=== PATIENT | female | born 1960 | race African-American/Black ===

== ENCOUNTER 2019-08-18 13:30 | Outpatient (CLI) | payer MEDICARE, MEDICAID ==
[2019-08-18 15:37] VITALS: BP 148/98
== END 2019-08-18 15:30 | disposition home or self-care (01) ==
LOC: PAN 13:30
DX: R10.9 Unspecified abdominal pain (principal); R14.0 Abdominal distension (gaseous)
CPT/HCPCS: 99203

== ENCOUNTER 2019-08-18 14:43 | Inpatient (IN) | payer MEDICARE, OTHER ==
[~2019-08-18] VITALS: Ht 170.2 cm; Wt 76.2 kg
[2019-08-18 14:55] VITALS: BP 173/87
--- NOTE | 2019-08-18 14:59 | Emergency Room Report ---
History of Present Illness General Chief Complaint: Abdominal Pain Source: Patient Present Illness HPI Is a 58-year-old female presents after increased epigastric pain and vomiting. Patient reports having multiple episodes of increased gas-like pain. She reports having increased muscle spasming. She reports having moderate headache. She denies any bloody stools and states she had a normal bowel movement this morning. Patient had prior history of hypertension she reports taking Vicodin this morning without any improvement. She had prior history of some kind of neck surgery which she cannot state what kind of surgery this was.Pain is worse with movement. She reports having difficulty with ambulation. Allergies: Coded Allergies: PENICILLINS (Verified Allergy, Unknown, 08/18/19) Patient History Last Menstrual Period: menopause Reviewed Nursing Documentation: PMH: Agreed; PSxH: Agreed Nursing Documentation-PMH Past Medical History: No Stated History Review of Systems All Other Systems: negative except mentioned in HPI Physical Exam Vital Signs Date Time Temp Pulse Resp B/P (MAP) Pulse Ox O2 Delivery O2 Flow Rate FiO2 08/18/19 14:50 99.0 96 16 151/84 (106) 98 Room Air General Appearance: no apparent distress, alert, GCS 15, Chronically Ill Neck: limited range of motion Respiratory: lungs clear, normal breath sounds Cardiovascular #1: normal peripheral pulses, regular rate, rhythm, no edema Gastrointestinal: normal inspection, non tender, soft Musculoskeletal: decreased range of motion - neck decreased ROM Neurologic: normal inspection, alert, responsive Psychiatric: normal inspection Skin: no rash Medical Decision Making Diagnostic Impression: Primary Impression: Abdominal pain Additional Impression: Gastritis ER Course Patient presented for abdominal pain. Patient was noted to have some neck pain as well. Differential diagnoses included ischemic bowel, appendicitis, perforated viscus, abdominal aortic aneurysm, inferior myocardial infarction, viral gastroenteritis among others.Because patient's complexity imaging studies , and laboratory testing ordered. Laboratory testing showed: Electrolytes were unremarkable Lipase was normal White blood count was slightly low. CT abdomen pelvis showed nonspecific changes see radiology report for full details. CT of cervical spine was ordered due to patient's restriction of range of motion of her neck . CT cervical spine showed postsurgical changes Patient was given pain medications for abdominal pain with some improvement. Dr. Joey Mireles was contacted for inpatient management due to persistent pain. Last Vital Signs Date Time Temp Pulse Resp B/P (MAP) Pulse Ox O2 Delivery O2 Flow Rate FiO2 08/18/19 14:50 99.0 96 16 151/84 (366) 15 Room Air Status: unchanged Disposition: ADMITTED INPATIENT Condition: Stable Scripts Pantoprazole* (PROTONIX*) 40 Mg Tablet.dr 40 MG ORAL DAILY for 30 Days, TAB Prov: Slade Murphy MD 08/21/19 Sucralfate* (CARAFATE*) 1 Gm Tablet 1 GM ORAL FOUR TIMES A DAY for 30 Days, TAB Prov: Slade Murphy MD 08/21/19 Jenaro Kelly MD Aug 18, 2019 14:59
[2019-08-18] MEDS ORDERED: LORazepam Inj 2mg/ml 1ml IV ONE (15:00)
[2019-08-18] MEDS ORDERED: DiphenhydrAMINE 50mg/ml Inj IVP ONE (15:00)
[2019-08-18] MEDS ORDERED: Omnipaque-300 100ml vial INJ PRN (15:00)
--- NOTE | 2019-08-18 15:23 | NUR ---
ED Nurse Note: pt walked in to ER from home due to sharp abdominal pain 09/09 which started today. pt aao x4 and ambulatory but weak due to severe abdominal pain at this moment. cooperative but moaning for pain. skin clean and intact. pt is in gown and on reliability technologist.
--- NOTE | 2019-08-18 15:33 | NUR ---
ED Nurse Note: pt unable to void as stating "I am too dehydrated." ERMD made aware. per ERMD, pt is ok to drink. a cup of water provided.
[2019-08-18 15:43] LABS: ANION GAP 12 mmol/L (5-15); BLOOD UREA NITROGEN 11 mg/dL (7-18); CALCIUM 9.7 MG/DL (8.5-10.1); CARBON DIOXIDE 26 MMOL/L (21-32); CHLORIDE 105 MMOL/L (98-107); CREATININE 1.3 MG/DL (0.55-1.30); POTASSIUM 3.1 MMOL/L (3.5-5.1); SODIUM 142 MMOL/L (136-145)
[2019-08-18 15:49] LABS: ALANINE AMINOTRANSFERASE 20 U/L (12-78); ALBUMIN 4.3 G/DL (3.4-5.0); ALBUMIN/GLOBULIN RATIO 1.1 (1.0-2.7); ALKALINE PHOSPHATASE 121 U/L (46-116); ASPARTATE AMINO TRANSFERASE 16 U/L (15-37); BILIRUBIN,TOTAL 0.4 MG/DL (0.2-1.0)
--- NOTE | 2019-08-18 16:10 | NUR ---
ED Nurse Note: pt went down for CT scan in stable condition.
[2019-08-18 16:11] LABS: BASOPHILS % (AUTO) 1.5 % (0.0-2.0); EOSINOPHILS % (AUTO) 0.4 % (0.0-3.0); HEMOGLOBIN 12.4 G/DL (12.0-16.0); MEAN CORPUSCULAR VOLUME 94 FL (80-99); MONOCYTES % (AUTO) 6.9 % (1.0-10.0); NEUTROPHILS % (AUTO) 51.2 % (45.0-75.0); PLATELET COUNT 268 K/UL (150-450); RED BLOOD COUNT 3.83 M/UL (4.20-5.40); RED CELL DISTRIBUTION WIDTH 11.7 % (11.6-14.8); WHITE BLOOD COUNT 4.7 K/UL (4.8-10.8)
--- NOTE | 2019-08-18 16:34 | NUR ---
ED Nurse Note: pt came back from imaging in stable condition.
--- NOTE | 2019-08-18 17:00 | Diagnostic Imaging Report ---
Indication: Neck pain Technique: CT cervical spine was performed utilizing automated exposure control without intravenous contrast material. Axial, sagittal and coronal images were generated. CT dose: Total DLP 339.17 mGycm; CTDI vol 15.88 mGy Comparison: None Findings: No acute cervical spine fractures identified. There is reversal of the cervical lordosis. There is no evidence of spondylolisthesis. There are multilevel discogenic degenerative changes of the cervical spine most pronounced at C6-C7 where there is complete deficiency of the disc and complete bony ankylosis at this level. There is multilevel mild facet and uncovertebral joint hypertrophy as well. There is no focus of severe bony central canal stenosis or high-grade bony foraminal narrowing. Please note that the central cord, disks and nerve roots are better evaluated on MRI, which can be obtained for more sensitive evaluation as clinically indicated. There is no prevertebral soft tissue fluid collection or hematoma. Imaged portions of the thyroid are normal in appearance. Imaged lung apices are clear. IMPRESSION: No evidence of acute cervical spine fracture. Degenerative changes of the cervical spine with reversal of the cervical lordosis with kyphosis related to severe degenerative changes at C6-C7 where there is near complete loss of the disc and near complete bony ankylosis of the adjacent vertebral bodies at this level. No focus of high-grade bony central canal stenosis or high-grade bony foraminal narrowing. The CT scanner at [facility] is accredited by the [employer] and the scans are performed using protocols designed to limit radiation exposure to as low as reasonably achievable to attain images of sufficient resolution adequate for diagnostic evaluation.
--- NOTE | 2019-08-18 17:07 | Diagnostic Imaging Report ---
Indication: Abdominal pain with vomiting Technique: CT of the abdomen and pelvis utilizing automated exposure control with intravenous contrast. Venous scanning performed. Axial, sagittal and coronal reformats presented. CT dose: Total DLP 742.99 mGycm; CTDI vol 15.47 mGy Comparison: None Findings: Image lower chest unremarkable. Hepatic contour is smooth. No focal hepatic mass lesion appreciated on this single phase exam. Portal veins appear patent. Gallbladder is without CT evident gallstones or pericholecystic inflammatory changes. No biliary ductal dilatation. Punctate calcifications noted in the spleen, possibly related to prior granulomatous exposure. Spleen is otherwise unremarkable. Adrenal glands and pancreas unremarkable. There is no peripancreatic inflammatory changes or fluid collections. Kidneys enhance symmetrically. There is no urinary tract stone or hydronephrosis. No perinephric stranding or perinephric fluid collections. Bladder is unremarkable in appearance. Patient is status post hysterectomy. There is no free intraperitoneal air or fluid. Apparent thickening of portions of the wall of the stomach likely related to underdistention. There is no evidence of small bowel obstruction. A few scattered colonic diverticula are noted without evidence of acute diverticulitis. Appendix is not definitively identified however there are no focal inflammatory changes in the right lower quadrant suggest acute appendicitis. Abdominal aorta is normal in caliber with overall mild atherosclerotic calcification. No pathologically enlarged lymphadenopathy is identified. No subcutaneous fluid collection. Scoliosis. No acute osseous abnormality. IMPRESSION: * Apparent thickening of portions of the wall of the stomach may possibly be related to underdistention versus gastritis. Consider follow-up endoscopy. * No evidence of small bowel obstruction. No free intraperitoneal air or fluid. * Few scattered colonic diverticula without evidence of acute diverticulitis. * Appendix not definitively identified. No secondary signs to suggest acute appendicitis. * Mild scoliosis and degenerative changes of the spine. No acute osseous normality. * Status post hysterectomy. The CT scanner at [facility] is accredited by the [employer] and the scans are performed using protocols designed to limit radiation exposure to as low as reasonably achievable to attain images of sufficient resolution adequate for diagnostic evaluation.
[2019-08-18 17:25] VITALS: BP 162/93
--- NOTE | 2019-08-18 17:30 | NUR ---
NURSE NOTES: received report from ER,ANDRAE Lozano. patient will be admitted to [facility] under . dx of ADB pain.
--- NOTE | 2019-08-18 17:30 | NUR ---
ED Nurse Note: report given to ANDRAE Ta
[2019-08-18 17:45] LABS: APPEARANCE,URINE CLEAR; BILIRUBIN, URINE NEGATIVE (NEGATIVE); COLOR,URINE PALE YELLOW; GLUCOSE, URINE (UA) NEGATIVE (NEGATIVE); KETONES,URINE NEGATIVE (NEGATIVE); LEUKOCYTE ESTERASE ,URINE 1+ (NEGATIVE); NITRITE,URINE NEGATIVE (NEGATIVE); PH,URINE 6.5 (4.5-8.0); PROTEIN,URINE NEGATIVE (NEGATIVE); UROBILINOGEN,URINE NORMAL MG/DL (0.0-1.0)
--- NOTE | 2019-08-18 17:48 | NUR ---
ED Nurse Note: pt left unit with 1 histology technologist in stable condition.
--- NOTE | 2019-08-18 17:55 | NUR ---
NURSE NOTES: patient admitted to Room 416-2 under dx of ADB pain. alert. oriented. verbally responsive. no medical history except hysterectomy. no respiratory distress noted on room air. pain on upper abd and back 10/10. patient got Ativan IVP and benadryl IVP for pain, Zofran for N/V. IV on LAC 20 intact. skin intact. no skin issues. left message to Dr. marina for admission orders.
--- NOTE | 2019-08-18 18:15 | Consultation ---
DATE OF CONSULTATION: 08/18/2019 CONSULTING PHYSICIAN: Gómez Jj M.D. CHIEF COMPLAINT: Total body pain. HISTORY OF PRESENT ILLNESS: This is a very pleasant 58-year-old female, difficult to get history from her. She is constant crying. She had history of gas all over her body from the toe all the way to the head. She has difficulty breathing, chest pain, shortness of breath, abdominal pain, constipation, dysphagia, severe epigastric pain so on and so forth. The patient is again crying significantly even touching her, she has pain. PAST MEDICAL HISTORY: 1. Hypertension. 2. Depression. PAST SURGICAL HISTORY: Hemorrhoidectomy. CURRENT MEDICATIONS: See medication reconciliation list. FAMILY HISTORY: No family history of GI malignancies. SOCIAL HISTORY: The patient denies any tobacco, alcohol, or drug abuse. ALLERGIES: Penicillin. REVIEW OF SYSTEMS: Abdominal pain. Constipation. Bloating. Total body. Gas all over the body from swelling. Again she is positive headaches, positive abdominal pain, positive chest pain, positive shortness of breath. PHYSICAL EXAMINATION: VITAL SIGNS: Temperature 99, blood pressure is 140/94, pulse is 99, respirations 20. HEENT: Normocephalic and atraumatic. Sclerae anicteric. NECK: Supple. No evidence of obvious lymphadenopathy. CARDIOVASCULAR: Tachy. Regular rate. Plus S1 and S2. LUNGS: Decreased breath sounds bilaterally. ABDOMEN: Positive bowel sounds. Soft. Again tender to palpation, but does not know how much reliable her exam is. EXTREMITIES: No cyanosis. No clubbing. No edema. ASSESSMENT AND PLAN: This is a 58-year-old female with total body pain, crying, complains of numerous complaints including chest pain, shortness of breath. I think the patient needs to be admitted to the emergency room for full workup. We need to get her labs, get an EKG to make sure she does not have any cardiopulmonary disease at this time. The patient also at the age of 58 needs a screening colonoscopy. Chronic epigastric pain also qualifies her for endoscopy. We will admit her first to the emergency room in the hospital, do workup, and then we will consider doing all those when she is stable. Gómez Radha Jj DR: ROMERO JOB#: [id number] CC:
[2019-08-18] MEDS ORDERED: Miralax 17gm pkt ORAL PRN (18:30)
[2019-08-18] MEDS ORDERED: Nitroglycerin Subl 0.4mg tab SL PRN (18:30)
[2019-08-18] MEDS ORDERED: Metoclopramide 10mg/2ml Inj IVP PRN (18:30)
[2019-08-18] MEDS: D5 1/2NS 1,000 ML IV SCH (18:49)
[2019-08-18] MEDS: Morphine Sulfate 2mg/ml Inj(IV/IM USE ONLY) IVP PRN ×2 (18:50→23:58)
--- NOTE | 2019-08-18 19:31 | NUR ---
HAND-OFF: Report given to ANDRAE Jimenes.
[2019-08-18 20:00] VITALS: BP 151/89
--- NOTE | 2019-08-18 20:22 | NUR ---
NURSE NOTES: RECEIVED PT FROM ANDRAE MOONEY. PT IS AWAKE, AAOX4, ON ROOM AIR, NO ACUTE DISTRESS NOTED. IV ON LEFT AC IS INTACT AND PATENT. PATIENT DENIES PAIN AT THE MOMENT. BED IS LOCKED AT THE LOWEST POSITION, BED ALARMS ACTIVE, SIDE RAILS UP X2 AND CALL LIGHT IS WITHIN REACH. WILL CONTINUE TO MONITOR.
[2019-08-18] MEDS: Heparin 5000 units/ml inj SUBQ SCH (20:55)
[2019-08-19] VITALS: BP 102/69
[2019-08-19] MEDS: LORazepam Inj 2mg/ml 1ml IV PRN ×2 (02:33→09:56)
[2019-08-19 04:00] VITALS: BP 128/76
[2019-08-19] MEDS: Morphine Sulfate 2mg/ml Inj(IV/IM USE ONLY) IVP PRN ×3 (04:28→13:17)
[2019-08-19 05:55] LABS: BASOPHILS % (AUTO) 2.1 % (0.0-2.0); EOSINOPHILS % (AUTO) 1.8 % (0.0-3.0); HEMATOCRIT 34.1 % (37.0-47.0); HEMOGLOBIN 11.2 G/DL (12.0-16.0); LYMPHOCYTES % (AUTO) 53.4 % (20.0-45.0); MEAN CORPUSCULAR VOLUME 96 FL (80-99); NEUTROPHILS % (AUTO) 35.7 % (45.0-75.0); PLATELET COUNT 264 K/UL (150-450); RED BLOOD COUNT 3.57 M/UL (4.20-5.40); RED CELL DISTRIBUTION WIDTH 12.8 % (11.6-14.8); WHITE BLOOD COUNT 4.4 K/UL (4.8-10.8)
[2019-08-19 06:36] LABS: ALANINE AMINOTRANSFERASE 17 U/L (12-78); ALBUMIN 3.5 G/DL (3.4-5.0); ALKALINE PHOSPHATASE 103 U/L (46-116); AMYLASE 76 U/L (25-115); ANION GAP 6 mmol/L (5-15); ASPARTATE AMINO TRANSFERASE 13 U/L (15-37); BILIRUBIN,TOTAL 0.4 MG/DL (0.2-1.0); BLOOD UREA NITROGEN 8 mg/dL (7-18); CARBON DIOXIDE 28 MMOL/L (21-32); CHLORIDE 109 MMOL/L (98-107); CREATININE 1.2 MG/DL (0.55-1.30); POTASSIUM 3.4 MMOL/L (3.5-5.1); SODIUM 143 MMOL/L (136-145)
--- NOTE | 2019-08-19 07:24 | NUR ---
HAND-OFF: Report given to ANDRAE GUZMAN.
--- NOTE | 2019-08-19 07:26 | NUR ---
NURSE NOTES: Patient is awake and alert,IV fluids infusing as ordered.Patient is NPO for procedure schedule today.Call light maritza moore.
[2019-08-19 08:00] VITALS: BP 132/85
[2019-08-19] MEDS: Pantoprazole Inj IV SCH (08:43)
[2019-08-19] MEDS: Heparin 5000 units/ml inj SUBQ SCH ×2 (08:46→20:20)
--- NOTE | 2019-08-19 09:39 | Diagnostic Imaging Report ---
Indication: 58-year-old female with abdominal pain Technique: Grayscale and duplex Doppler imaging of the abdomen performed. Comparison: None Findings: The liver appears homogeneous. There is a slight contour deformity along the lateral segment of the left lobe not felt to be significant. Doppler interrogation of the main portal vein shows patency with hepatopedal, monophasic flow. There is no biliary ductal dilatation identified. CBD is between 5 and 6 mm which is normal for this age. There is no intrahepatic biliary ductal dilatation. As is typically seen, CBD is slightly larger near the kole hepatis. Gallbladder is unremarkable. There demonstrated part of the pancreas, aorta and IVC show no definite abnormalities. Both kidneys appear unremarkable. There is no hydronephrosis. IMPRESSION: No acute findings identified.
[2019-08-19] MEDS: D5 1/2NS 1,000 ML IV SCH ×2 (10:00→10:52)
[2019-08-19 12:00] VITALS: BP 163/77
--- NOTE | 2019-08-19 12:31 | Consultation ---
History of Present Illness General Date patient seen: Aug 19, 2019 Chief Complaint: Abdominal Pain Present Illness Allergies: Coded Allergies: PENICILLINS (Verified Allergy, Unknown, 08/18/19) Medication History No Active Prescriptions or Reported Meds Patient History Healthcare decision maker Resuscitation status Advanced Directive on File Physical Exam Last 24 Hour Vital Signs Date Time Temp Pulse Resp B/P (MAP) Pulse Ox O2 Delivery O2 Flow Rate FiO2 08/19/19 08:00 98.5 83 19 132/85 (101) 100 08/19/19 08:00 98.5 83 19 132/85 (101) 100 08/19/19 04:00 98.0 77 18 128/76 (93) 99 08/19/19 00:00 98.6 74 18 102/69 (80) 99 08/18/19 21:00 Room Air 08/18/19 20:00 99.0 76 18 151/89 (109) 95 08/18/19 18:09 Room Air 08/18/19 17:48 98.7 79 22 162/93 100 Room Air 08/18/19 17:25 98.7 79 22 162/93 100 Room Air 08/18/19 15:34 76 18 Room Air 08/18/19 14:55 79 16 173/87 100 Room Air 08/18/19 14:50 99.0 96 16 151/84 (106) 98 Room Air Intake and Output 08/18/19 08/19/19 19:00 07:00 Intake Total 500 ml 900 ml Balance 500 ml 900 ml Intake Oral 0 ml IV Total 500 ml 900 ml Laboratory Tests Test 08/18/19 15:20 08/18/19 16:00 08/18/19 17:00 08/19/19 05:40 Sodium Level 142 MMOL/L (136-145) 143 MMOL/L (136-145) Potassium Level 3.1 MMOL/L (3.5-5.1) L 3.4 MMOL/L (3.5-5.1) L Chloride Level 105 MMOL/L (98-107) 109 MMOL/L (98-107) H Carbon Dioxide Level 26 MMOL/L (21-32) 28 MMOL/L (21-32) Anion Gap 12 mmol/L (5-15) 6 mmol/L (5-15) Blood Urea Nitrogen 11 mg/dL (7-18) 8 mg/dL (7-18) Creatinine 1.3 MG/DL (0.55-1.30) 1.2 MG/DL (0.55-1.30) Estimat Glomerular Filtration Rate 51.1 mL/min (>60) 56.1 mL/min (>60) Glucose Level 98 MG/DL (74-106) 103 MG/DL (74-106) Calcium Level 9.7 MG/DL (8.5-10.1) 9.0 MG/DL (8.5-10.1) Total Bilirubin 0.4 MG/DL (0.2-1.0) 0.4 MG/DL (0.2-1.0) Aspartate Amino Transf (AST/SGOT) 16 U/L (15-37) 13 U/L (15-37) L Alanine Aminotransferase (ALT/SGPT) 20 U/L (12-78) 17 U/L (12-78) Alkaline Phosphatase 121 U/L (46-116) H 103 U/L (46-116) Total Protein 8.2 G/DL (6.4-8.2) 7.0 G/DL (6.4-8.2) Albumin 4.3 G/DL (3.4-5.0) 3.5 G/DL (3.4-5.0) Globulin 3.9 g/dL 3.5 g/dL Albumin/Globulin Ratio 1.1 (1.0-2.7) 1.0 (1.0-2.7) Lipase 167 U/L (73-393) 240 U/L (73-393) White Blood Count 4.7 K/UL (4.8-10.8) L 4.4 K/UL (4.8-10.8) L Red Blood Count 3.83 M/UL (4.20-5.40) L 3.57 M/UL (4.20-5.40) L Hemoglobin 12.4 G/DL (12.0-16.0) 11.2 G/DL (12.0-16.0) L Hematocrit 36.0 % (37.0-47.0) L 34.1 % (37.0-47.0) L Mean Corpuscular Volume 94 FL (80-99) 96 FL (80-99) Mean Corpuscular Hemoglobin 32.3 PG (27.0-31.0) H 31.4 PG (27.0-31.0) H Mean Corpuscular Hemoglobin Concent 34.3 G/DL (32.0-36.0) 32.8 G/DL (32.0-36.0) Red Cell Distribution Width 11.7 % (11.6-14.8) 12.8 % (11.6-14.8) Platelet Count 268 K/UL (150-450) 264 K/UL (150-450) Mean Platelet Volume 6.9 FL (6.5-10.1) 6.7 FL (6.5-10.1) Neutrophils (%) (Auto) 51.2 % (45.0-75.0) 35.7 % (45.0-75.0) L Lymphocytes (%) (Auto) 40.0 % (20.0-45.0) 53.4 % (20.0-45.0) H Monocytes (%) (Auto) 6.9 % (1.0-10.0) 7.0 % (1.0-10.0) Eosinophils (%) (Auto) 0.4 % (0.0-3.0) 1.8 % (0.0-3.0) Basophils (%) (Auto) 1.5 % (0.0-2.0) 2.1 % (0.0-2.0) H Prothrombin Time 10.6 SEC (9.30-11.50) Prothromb Time International Ratio 1.0 (0.9-1.1) Activated Partial Thromboplast Time 24 SEC (23-33) 27 SEC (23-33) Urine Color Pale yellow Urine Appearance Clear Urine pH 6.5 (4.5-8.0) Urine Specific [place] 1.010 (1.005-1.035) Urine Protein Negative (NEGATIVE) Urine Glucose (UA) Negative (NEGATIVE) Urine Ketones Negative (NEGATIVE) Urine Blood Negative (NEGATIVE) Urine Nitrite Negative (NEGATIVE) Urine Bilirubin Negative (NEGATIVE) Urine Urobilinogen Normal MG/DL (0.0-1.0) Urine Leukocyte Esterase 1+ (NEGATIVE) H Urine RBC 0-2 /HPF (0 - 2) Urine WBC 2-4 /HPF (0 - 2) Urine Squamous Epithelial Cells Few /LPF (NONE/OCC) Urine Bacteria Few /HPF (NONE) Amylase Level 76 U/L (25-115) Height (Feet): 5 Height (Inches): 7.00 Weight (Pounds): 168 Medications Current Medications Medications (Trade) Dose Ordered Sig/Coleen Route PRN Reason Start Time Stop Time Status Last Admin Dose Admin Acetaminophen (Tylenol) 650 mg Q4H PRN ORAL fever 08/18/19 18:30 09/17/19 18:29 Dextrose (Dextrose 50%) 25 ml Q30M PRN IV Hypoglycemia 08/18/19 18:30 09/17/19 18:29 Dextrose (Dextrose 50%) 50 ml Q30M PRN IV Hypoglycemia 08/18/19 18:30 09/17/19 18:29 Dextrose/Sodium Chloride 1,000 ml @ 75 mls/hr [id number] IV 08/18/19 18:26 09/17/19 18:25 08/19/19 10:52 Diphenhydramine HCl (Benadryl) 25 mg Q6H PRN ORAL Itching/Pruritis 08/18/19 18:30 09/17/19 18:29 Heparin Sodium (Porcine) (Heparin 5000 units/ml) 5,000 units EVERY 12 HOURS SUBQ 08/18/19 21:00 09/17/19 20:59 08/19/19 08:46 Iohexol (OMNIPAQUE-300 100ml) 100 ml NOW PRN INJ Radiology Procedure 08/18/19 15:00 08/20/19 15:00 Lorazepam (Ativan 2mg/ml 1ml) 1 mg Q4H PRN IV agitation 08/18/19 18:30 08/25/19 18:29 08/19/19 09:56 Metoclopramide HCl (Reglan) 10 mg Q6H PRN IVP severe nausea 08/18/19 18:30 09/17/19 18:29 Morphine Sulfate (Morphine Sulfate) 2 mg Q4H PRN IVP severe Pain (Pain Scale 7-10) 08/18/19 18:30 08/25/19 18:29 08/19/19 08:43 Nitroglycerin (Ntg) 0.4 mg Q5M X 3 DOSES PRN SL Prn Chest Pain 08/18/19 18:30 09/17/19 18:29 Ondansetron HCl (Zofran) 4 mg Q6H PRN IVP Nausea & Vomiting 08/18/19 18:30 09/17/19 18:29 Pantoprazole (Protonix) 40 mg DAILY IV 08/19/19 09:00 09/18/19 08:59 08/19/19 08:43 Polyethylene Glycol (Miralax) 17 gm HSPRN PRN ORAL Constipation 08/18/19 18:30 09/17/19 18:29 Temazepam (Restoril) 15 mg HSPRN PRN ORAL Insomnia 08/18/19 18:30 08/25/19 18:29 Slade Murphy MD Aug 19, 2019 12:31
--- NOTE | 2019-08-19 14:32 | GI Progress Note ---
Assessment/Plan Problems: (1) Abdominal pain ICD Codes: R10.9 - Unspecified abdominal pain SNOMED: [id number] Status: unchanged Status Narrative Discussed with Dr. Jj. Assessment/Plan EGD/colonoscopy scheduled for tomorrow. - CLD, NPO @ [place]. - hold all blood thinners tonight prn transfusions ppi will follow with additional recommendations post procedure. The patient was seen and examined at bedside and all new and available data was reviewed in the patients chart. I agree with the above findings, impression and plan. (Patient seen earlier today. Signature stamp does not reflect patient encounter time.). - Gómez Jj MD Subjective Gastrointestinal/Abdominal: Reports: abdominal pain Objective Last 24 Hour Vital Signs Date Time Temp Pulse Resp B/P (MAP) Pulse Ox O2 Delivery O2 Flow Rate FiO2 08/19/19 12:00 98.6 74 18 163/77 (105) 99 08/19/19 09:00 Room Air 08/19/19 08:00 98.5 83 19 132/85 (101) 100 08/19/19 08:00 98.5 83 19 132/85 (101) 100 08/19/19 04:00 98.0 77 18 128/76 (93) 99 08/19/19 00:00 98.6 74 18 102/69 (80) 99 08/18/19 21:00 Room Air 08/18/19 20:00 99.0 76 18 151/89 (109) 95 08/18/19 18:09 Room Air 08/18/19 17:48 98.7 79 22 162/93 100 Room Air 08/18/19 17:25 98.7 79 22 162/93 100 Room Air 08/18/19 15:34 76 18 Room Air 08/18/19 14:55 79 16 173/87 100 Room Air 08/18/19 14:50 99.0 96 16 151/84 (106) 98 Room Air Intake and Output 08/18/19 08/19/19 19:00 07:00 Intake Total 500 ml 900 ml Balance 500 ml 900 ml Intake Oral 0 ml IV Total 500 ml 900 ml Laboratory Tests Test 08/18/19 15:20 08/18/19 16:00 08/18/19 17:00 08/19/19 05:40 Sodium Level 142 MMOL/L (136-145) 143 MMOL/L (136-145) Potassium Level 3.1 MMOL/L (3.5-5.1) L 3.4 MMOL/L (3.5-5.1) L Chloride Level 105 MMOL/L (98-107) 109 MMOL/L (98-107) H Carbon Dioxide Level 26 MMOL/L (21-32) 28 MMOL/L (21-32) Anion Gap 12 mmol/L (5-15) 6 mmol/L (5-15) Blood Urea Nitrogen 11 mg/dL (7-18) 8 mg/dL (7-18) Creatinine 1.3 MG/DL (0.55-1.30) 1.2 MG/DL (0.55-1.30) Estimat Glomerular Filtration Rate 51.1 mL/min (>60) 56.1 mL/min (>60) Glucose Level 98 MG/DL (74-106) 103 MG/DL (74-106) Calcium Level 9.7 MG/DL (8.5-10.1) 9.0 MG/DL (8.5-10.1) Total Bilirubin 0.4 MG/DL (0.2-1.0) 0.4 MG/DL (0.2-1.0) Aspartate Amino Transf (AST/SGOT) 16 U/L (15-37) 13 U/L (15-37) L Alanine Aminotransferase (ALT/SGPT) 20 U/L (12-78) 17 U/L (12-78) Alkaline Phosphatase 121 U/L (46-116) H 103 U/L (46-116) Total Protein 8.2 G/DL (6.4-8.2) 7.0 G/DL (6.4-8.2) Albumin 4.3 G/DL (3.4-5.0) 3.5 G/DL (3.4-5.0) Globulin 3.9 g/dL 3.5 g/dL Albumin/Globulin Ratio 1.1 (1.0-2.7) 1.0 (1.0-2.7) Lipase 167 U/L (73-393) 240 U/L (73-393) White Blood Count 4.7 K/UL (4.8-10.8) L 4.4 K/UL (4.8-10.8) L Red Blood Count 3.83 M/UL (4.20-5.40) L 3.57 M/UL (4.20-5.40) L Hemoglobin 12.4 G/DL (12.0-16.0) 11.2 G/DL (12.0-16.0) L Hematocrit 36.0 % (37.0-47.0) L 34.1 % (37.0-47.0) L Mean Corpuscular Volume 94 FL (80-99) 96 FL (80-99) Mean Corpuscular Hemoglobin 32.3 PG (27.0-31.0) H 31.4 PG (27.0-31.0) H Mean Corpuscular Hemoglobin Concent 34.3 G/DL (32.0-36.0) 32.8 G/DL (32.0-36.0) Red Cell Distribution Width 11.7 % (11.6-14.8) 12.8 % (11.6-14.8) Platelet Count 268 K/UL (150-450) 264 K/UL (150-450) Mean Platelet Volume 6.9 FL (6.5-10.1) 6.7 FL (6.5-10.1) Neutrophils (%) (Auto) 51.2 % (45.0-75.0) 35.7 % (45.0-75.0) L Lymphocytes (%) (Auto) 40.0 % (20.0-45.0) 53.4 % (20.0-45.0) H Monocytes (%) (Auto) 6.9 % (1.0-10.0) 7.0 % (1.0-10.0) Eosinophils (%) (Auto) 0.4 % (0.0-3.0) 1.8 % (0.0-3.0) Basophils (%) (Auto) 1.5 % (0.0-2.0) 2.1 % (0.0-2.0) H Prothrombin Time 10.6 SEC (9.30-11.50) Prothromb Time International Ratio 1.0 (0.9-1.1) Activated Partial Thromboplast Time 24 SEC (23-33) 27 SEC (23-33) Urine Color Pale yellow Urine Appearance Clear Urine pH 6.5 (4.5-8.0) Urine Specific [place] 1.010 (1.005-1.035) Urine Protein Negative (NEGATIVE) Urine Glucose (UA) Negative (NEGATIVE) Urine Ketones Negative (NEGATIVE) Urine Blood Negative (NEGATIVE) Urine Nitrite Negative (NEGATIVE) Urine Bilirubin Negative (NEGATIVE) Urine Urobilinogen Normal MG/DL (0.0-1.0) Urine Leukocyte Esterase 1+ (NEGATIVE) H Urine RBC 0-2 /HPF (0 - 2) Urine WBC 2-4 /HPF (0 - 2) Urine Squamous Epithelial Cells Few /LPF (NONE/OCC) Urine Bacteria Few /HPF (NONE) Amylase Level 76 U/L (25-115) Height (Feet): 5 Height (Inches): 7.00 Weight (Pounds): 168 General Appearance: WD/WN, no apparent distress, alert Cardiovascular: normal rate Respiratory/Chest: normal breath sounds, no respiratory distress Abdominal Exam: normal bowel sounds, non tender, soft Extremities: normal range of motion, non-tender Evan Bravo NP Aug 19, 2019 14:32
--- NOTE | 2019-08-19 15:07 | NUR ---
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 98.9 HR 96 RR 16 B/P 101/84 WBC 4.7 K 3.1 ALK PHOS 121 ABD US= NEGATIVE CT SPINE= NO FRACTURE NOTES CT ABD/PEL= NEGATIVE IS: IV BOLUS NS X 500ML K-DUR PO ADMITTED TO MED/SURG MED/SURG STATUS GI CONSULT DCP RETURN HOME
[2019-08-19 16:00] VITALS: BP 135/82
[2019-08-19] MEDS ORDERED: Bisacodyl EC 5mg tab ORAL SCH (16:00)
[2019-08-19] MEDS ORDERED: Nulytely 4L ORAL SCH (16:00)
--- NOTE | 2019-08-19 17:50 | History & Physical ---
History and Physical History & Physicial Dictated for Int Med-DR Mireles no. [id number]. Tim Jiang MD Aug 19, 2019 17:50
[2019-08-19] MEDS: Morphine Sulfate 4mg/ml Inj (IV USE ONLY) IVP PRN ×2 (18:06→22:20)
[2019-08-19] MEDS ORDERED: Morphine Sulfate 2mg/ml Inj(IV/IM USE ONLY) IVP PRN (18:30)
--- NOTE | 2019-08-19 18:30 | NUR ---
NURSE NOTES: patient was started on bowel prep as ordered for schedule EGD and Colonoscopy. Prior to starting prep,patient medicated for pain with some relief.Call light within reach,Bedside commode in room.
--- NOTE | 2019-08-19 19:30 | NUR ---
HAND-OFF: Report given to Jessica ABEBE.
--- NOTE | 2019-08-19 19:45 | History and Physical Report ---
DATE OF ADMISSION: 08/18/2019 CHIEF COMPLAINT: The patient is a 58-year-old female, who presents with a chief complaint of "stomach pain, nausea, and vomiting." HISTORY OF PRESENT ILLNESS: Began approximately two months ago. The patient began to experience epigastric pain. The patient states the pain is increased over the last three days. The patient has developed nausea and vomiting. The patient states she is unable to tolerate liquids or solids. The patient presented to [facility]. The patient is admitted for epigastric pain to rule out peptic ulcer disease. REVIEW OF SYSTEMS: CONSTITUTIONAL: The patient denies weight loss or weight gain. The patient denies fevers or chills. HEENT: The patient denies ear or throat pain. The patient denies headache. CARDIOVASCULAR: The patient denies palpitations or chest pain. CHEST: The patient denies wheeze or shortness of breath. ABDOMEN: The patient complains of epigastric pain as above. The patient complains of nausea with vomiting as above. The patient denies diarrhea or constipation. GENITOURINARY: The patient denies dysuria or increased frequency of urination. NEUROMUSCULAR: The patient denies seizures or generalized pain. PAST MEDICAL HISTORY: The patient denies. PAST SURGICAL HISTORY: Significant for hemorrhoidectomy. CURRENT MEDICATIONS: The patient denies. ALLERGIES: Penicillin. SOCIAL HISTORY: The patient is and is disabled. The patient denies tobacco or alcohol use. PHYSICAL EXAMINATION: VITAL SIGNS: Temperature 98.6, respirations 18, pulse 74, blood pressure 102/69. GENERAL: The patient is well-developed and well-nourished female, who is currently crying. HEENT: Eyes, pupils are equal and responsive to light and accommodation. Extraocular movements are intact. NECK: Supple without lymphadenopathy. CHEST: Lungs are clear to auscultation bilaterally without wheezes or rales. CARDIOVASCULAR: Regular rhythm and rate. S1, S2 are normal without murmurs, rubs, or gallops. ABDOMEN: Soft, tender to palpation in the epigastric region, nondistended with positive bowel sounds. No evidence of hepatosplenomegaly. Currently, no rebound or guarding noted. EXTREMITIES: Negative for clubbing, cyanosis, or edema. RECTAL/GENITAL: Not performed. NEUROLOGIC: Cranial nerves II through XII are grossly intact without focal deficits. Motor strength is 5/5 bilaterally. Deep tendon reflexes are 2+ plantar. IMAGING: A CT scan of the abdomen and pelvis revealed thickening of portions of the wall of the stomach consistent with gastritis. LABORATORY STUDIES: WBC 4.7, hemoglobin 12.4, hematocrit 36.0, platelets 260,000. Sodium 142, potassium 3.1, chloride 105, CO2 26, BUN 11, creatinine 1.3, glucose 98. Amylase 76, lipase 167. ASSESSMENT: This is a 58-year-old female. 1. Epigastric pain. 2. Nausea and vomiting. TREATMENT: Epigastric pain/nausea/vomiting. A Gastroenterology consultation has been obtained with Dr. Gómez Jj. The patient is scheduled for endoscopy on . The patient has been started empirically on intravenous Protonix. The patient is also receiving morphine for pain control. We will follow recommendation of Gastroenterology. Tim Jiang M.D. DR: CARLOTA JOB#: [id number] CC:
--- NOTE | 2019-08-19 19:45 | NUR ---
NURSE NOTES: Received patient in bed, awake, alert, oriented x4, able to make her needs known, no acute distress noted, VSS, afebrile. IV site is clean dry and intact. Call light is within reach, bed is in low position, locked, alarm is on. Will continue to monitor for safety and comfort.
[2019-08-19] MEDS: 1/2NS w/KCl 20mEq 1000ml 1,000 ML IV SCH (19:51)
[2019-08-19 20:00] VITALS: BP 143/89
[2019-08-19] MEDS ORDERED: Fleet's Enema 133ml RECTAL SCH (23:00)
[2019-08-20] VITALS (18 sets, daily range): BP systolic 114–167; BP diastolic 62–94
[2019-08-20] MEDS: Morphine Sulfate 4mg/ml Inj (IV USE ONLY) IVP PRN ×5 (02:47→21:21)
[2019-08-20 05:47] LABS: HEMATOCRIT 31.9 % (37.0-47.0); HEMOGLOBIN 10.6 G/DL (12.0-16.0); MEAN CORPUSCULAR VOLUME 95 FL (80-99); PLATELET COUNT 263 K/UL (150-450); RED BLOOD COUNT 3.37 M/UL (4.20-5.40); RED CELL DISTRIBUTION WIDTH 12.3 % (11.6-14.8); WHITE BLOOD COUNT 4.5 K/UL (4.8-10.8)
[2019-08-20 06:03] LABS: ANION GAP 10 mmol/L (5-15); BLOOD UREA NITROGEN 6 mg/dL (7-18); CALCIUM 8.9 MG/DL (8.5-10.1); CARBON DIOXIDE 25 MMOL/L (21-32); CHLORIDE 108 MMOL/L (98-107); POTASSIUM 3.5 MMOL/L (3.5-5.1); SODIUM 143 MMOL/L (136-145)
--- NOTE | 2019-08-20 07:31 | NUR ---
HAND-OFF: Report given to Clementina ABEBE.
--- NOTE | 2019-08-20 07:59 | NUR ---
NURSE NOTES: received pt in bed, no complaint of pain or discomfort. Patient is NPO for procedure, patient is aware and sign at the room door. LAC gauge 20 saline locked. Bed locked at the lowest position possible, call light within easy reach, siderails upx2. Will continue to monitor pt and follow up with the plan of care.
[2019-08-20] MEDS: Pantoprazole Inj IV SCH (08:59)
[2019-08-20] MEDS: Heparin 5000 units/ml inj SUBQ SCH ×2 (08:59→21:00)
[2019-08-20] MEDS: 1/2NS w/KCl 20mEq 1000ml 1,000 ML IV SCH ×2 (09:15→21:21)
[2019-08-20] MEDS ORDERED: fentaNYL 100 mcg/2 mL IV ONE ×2 (12:08→12:23)
[2019-08-20] MEDS ORDERED: Midazolam 2mg/2ml Inj ONE ×2 (12:10→12:23)
--- NOTE | 2019-08-20 12:14 | Pre-Procedure Note/Attestation ---
Pre-Procedure Note/Attestation Complete Prior to Procedure Planned Procedure: not applicable Procedure Narrative: esophagogastroduodenoscopy and colonoscopy Indications for Procedure Pre-Operative Diagnosis: anemia, abd pain Attestation I attest that I discussed the nature of the procedure; its benefits; risks and complications; and alternatives (and the risks and benefits of such alternatives ), prior to the procedure, with the patient (or the patient's legal ambulatory services representative). I attest that, if there was a reasonable possibility of needing a blood transfusion, the patient (or the patient's legal ambulatory services representative) was given the [facility] standardized written summary, pursuant to the Jasbir Lilliana Blood Safety Act ([place] Health and Safety Code # 1645, as amended). I attest that I re-evaluated the patient just prior to the surgery and that there has been no change in the patient's H&P, except as documented below: Gómez Jj MD Aug 20, 2019 12:14
--- NOTE | 2019-08-20 12:15 | Moderate Sedation - Procedural ---
Moderate Sedation HPI Home Medication No Active Prescriptions or Reported Meds Patient History Allergies: Coded Allergies: PENICILLINS (Verified Allergy, Unknown, 08/18/19) Pre-Procedural Mod Sedation Date: Aug 20, 2019 Pre-Assessment Time: 12:14 Airway Assessment (Malampati): II Heart: normal Lungs: normal Abdomen: normal Extremities: normal Evaluation Hx of untoward rxns to mod sed: Yes Procedures/Plans: EGD, Colonoscopy Plan for Moderate Sedation: Midazolam, Fentanyl ASA Score: II Informed Consent The nature of the procedure/sedation; its benefits; risks and complications; and alternatives (and the risks and benefits of such alternatives) were discussed with the patient (or their legal franchise sales representative), prior to the procedure. All questions were answered to the patient's (or their legal franchise sales representative's) satisfaction and the patient (or their legal franchise sales representative) gave informed consent to the procedure. I attest that I re-evaluated the patient just prior to the surgery and that there has been no change in the patient's H&P, except as documented below: Gómez Jj MD Aug 20, 2019 12:15
--- NOTE | 2019-08-20 12:28 | Endoscopy Procedure Note ---
Endoscopy Procedure Note General Indication for Procedure: anemia, abd pain Procedures Performed: EGD, colonoscopy Operative Findings/Diagnosis: gastritis, hemorrhoids Specimen: yes Pt Tolerated Procedure Well: Yes Estimated Blood Loss: none Anesthesia Anesthesiologist: none Anesthesia: moderate sedation Inserted Devices Implant(s) used?: No GI Core Measures 50 yrs or older w/o bx or poly: Not Applicable 10yrs. F/U recommended: Not Applicable Gómez Jj MD Aug 20, 2019 12:28
--- NOTE | 2019-08-20 14:49 | NUR ---
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 97.1 HR 69 RR 20 B/P 125/60 RA 98% IS: IVF NS @ 75ML/HR PROTONIX IV HEPARIN SUBC MED/SURG STATUS
--- NOTE | 2019-08-20 15:42 | Pulmonology Progress Note ---
Assessment/Plan Problems: (1) Abdominal pain (2) Gastritis Assessment/Plan tolerated endoscopy very well tolerating diet d/w GI symptomatic treatment Subjective ROS Limited/Unobtainable: No Constitutional: Reports: no symptoms HEENT: Repors: no symptoms Respiratory: Reports: no symptoms Allergies: Coded Allergies: PENICILLINS (Verified Allergy, Unknown, 08/18/19) Objective Last 24 Hour Vital Signs Date Time Temp Pulse Resp B/P (MAP) Pulse Ox O2 Delivery O2 Flow Rate FiO2 08/20/19 13:25 97.1 69 20 125/63 99 Room Air 08/20/19 13:10 67 21 114/63 98 Room Air 08/20/19 13:00 66 19 124/62 100 Nasal Cannula 3 08/20/19 12:55 63 20 119/67 100 Nasal Cannula 3 08/20/19 12:50 97.6 65 18 123/67 100 Nasal Cannula 3 08/20/19 12:05 98.1 08/20/19 09:00 Room Air 08/20/19 08:00 98.1 65 18 132/80 (97) 08/20/19 04:00 98.1 75 18 148/80 (102) 08/20/19 00:00 98.2 76 20 131/94 (106) 08/19/19 21:17 Room Air 08/19/19 20:00 98.8 75 18 143/89 (107) 08/19/19 16:00 98.4 79 17 135/82 (99) 97 Intake and Output 08/19/19 08/20/19 19:00 07:00 Intake Total 775 ml 600 ml Balance 775 ml 600 ml IV Total 525 ml 600 ml Other 250 ml # Voids 4 # Bowel Movements 4 General Appearance: WD/WN, no acute distress HEENT: anicteric Respiratory/Chest: chest wall non-tender, lungs clear Breasts: no masses Cardiovascular: normal rate Abdomen: normal bowel sounds, soft, non tender Genitourinary: normal external genitalia Extremities: no cyanosis 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 Lymphatic: no neck adenopathy Musculoskeletal: normal muscle bulk Laboratory Tests 08/20/19 05:23: White Blood Count 4.5L, Red Blood Count 3.37L, Hemoglobin 10.6L, Hematocrit 31.9L, Mean Corpuscular Volume 95, Mean Corpuscular Hemoglobin 31.5H, Mean Corpuscular Hemoglobin Concent 33.2, Red Cell Distribution Width 12.3, Platelet Count 263, Mean Platelet Volume 6.5, Neutrophils (%) (Auto) , Lymphocytes (%) ( Auto) , Monocytes (%) (Auto) , Eosinophils (%) (Auto) , Basophils (%) (Auto) , Prothrombin Time 10.7, Prothromb Time International Ratio 1.0, Activated Partial Thromboplast Time 25, Sodium Level 143, Potassium Level 3.5, Chloride Level 108H, Carbon Dioxide Level 25, Anion Gap 10, Blood Urea Nitrogen 6L, Creatinine 1.0, Estimat Glomerular Filtration Rate > 60, Glucose Level 87, Calcium Level 8.9 Current Medications Medications (Trade) Dose Ordered Sig/Coleen Route PRN Reason Start Time Stop Time Status Last Admin Dose Admin Acetaminophen (Tylenol) 650 mg Q4H PRN ORAL fever 08/18/19 18:30 09/17/19 18:29 Dextrose (Dextrose 50%) 25 ml Q30M PRN IV Hypoglycemia 08/18/19 18:30 09/17/19 18:29 Dextrose (Dextrose 50%) 50 ml Q30M PRN IV Hypoglycemia 08/18/19 18:30 09/17/19 18:29 Diphenhydramine HCl (Benadryl) 25 mg Q6H PRN ORAL Itching/Pruritis 08/18/19 18:30 09/17/19 18:29 Heparin Sodium (Porcine) (Heparin 5000 units/ml) 5,000 units EVERY 12 HOURS SUBQ 08/18/19 21:00 09/17/19 20:59 08/19/19 08:46 Lorazepam (Ativan 2mg/ml 1ml) 1 mg Q4H PRN IV agitation 08/18/19 18:30 08/25/19 18:29 08/19/19 09:56 Metoclopramide HCl (Reglan) 10 mg Q6H PRN IVP severe nausea 08/18/19 18:30 09/17/19 18:29 Morphine Sulfate (Morphine Sulfate) 2 mg Q4H PRN IVP Moderate Pain (Pain Scale 4-6) 08/19/19 18:30 08/25/19 18:29 Morphine Sulfate (Morphine Sulfate) 4 mg Q4H PRN IVP Severe Pain (Pain Scale 7-10) 08/19/19 17:45 08/26/19 17:44 08/20/19 11:35 Nitroglycerin (Ntg) 0.4 mg Q5M X 3 DOSES PRN SL Prn Chest Pain 08/18/19 18:30 09/17/19 18:29 Ondansetron HCl (Zofran) 4 mg Q6H PRN IVP Nausea & Vomiting 08/18/19 18:30 09/17/19 18:29 Pantoprazole (Protonix) 40 mg DAILY IV 08/19/19 09:00 09/18/19 08:59 08/20/19 08:59 Polyethylene Glycol (Miralax) 17 gm HSPRN PRN ORAL Constipation 08/18/19 18:30 09/17/19 18:29 Sodium 1,000 ml @ 75 mls/hr [id number] IV 08/19/19 19:00 09/18/19 18:59 08/20/19 09:15 Temazepam (Restoril) 15 mg HSPRN PRN ORAL Insomnia 08/18/19 18:30 08/25/19 18:29 Slade Murphy MD Aug 20, 2019 15:42
--- NOTE | 2019-08-20 16:45 | Procedure Note ---
DATE OF PROCEDURE: 08/20/2019 SURGEON: Gómez Jj M.D. REFERRING PHYSICIAN: Joey Mireles M.D. PROCEDURE: Upper endoscopy with biopsy and colonoscopy. ANESTHESIA: A 6 mg of Versed and 100 mcg of fentanyl IV. INDICATION: Anemia, abdominal pain. REASON FOR PROCEDURE: The procedure, risks, benefits, and possible consequences, including hemorrhage, aspiration, perforation and infection, and alternative treatments, were explained to the patient/legal guardian by Dr. Gómez Jj and the patient/legal guardian understood and accepted these risks. PROCEDURE IN DETAIL: After informed consent was obtained and the patient was adequately sedated, Olympus upper endoscope was advanced from the mouth into the second portion of the duodenum and retroflexion was performed in the stomach. The patient has few erosions in the antrum without any obvious ulceration or bleeding. Biopsy from antrum was obtained to rule out H. pylori infection. At this time, the upper endoscope was retrieved and the patient was turned over for colonoscopy. First, rectal exam was performed, which was positive for internal hemorrhoids. Then, the scope was advanced from rectum into the cecum documented by appendiceal orifice, ileocecal valve, and right upper quadrant palpation. Quality of prep was good. The patient has some scattered diverticulosis in the left colon. Retroflexion of rectum showed evidence of internal hemorrhoids. Otherwise, the rest of the examination was within normal limits. No obvious findings in this endoscopy and colonoscopy, for the patient complain of abdominal pain and anemia. RECOMMENDATIONS: 1. Follow up biopsy results and treat accordingly. 2. The patient to be started on diet and advance as tolerated. 3. GI standpoint, the patient can be discharged and follow as an outpatient for further workup of her abdominal pain. I want to thank, Dr. Joey Mireles for this kind referral. Gómez Jj M.D. DR: SHEREEN JOB#: [id number] CC: Joey Mireles M.D.; Fax#: [phone]
[2019-08-20] MEDS ORDERED: LORazepam Inj 2mg/ml 1ml IV SCH (18:45)
--- NOTE | 2019-08-20 19:39 | Internal Med Progress Note ---
Subjective Physician Name Joey Mireles Attending Physician Joey Mireles MD Current Medications Medications (Trade) Dose Ordered Sig/Coleen Route PRN Reason Start Time Stop Time Status Last Admin Dose Admin Acetaminophen (Tylenol) 650 mg Q4H PRN ORAL fever 08/18/19 18:30 09/17/19 18:29 Dextrose (Dextrose 50%) 25 ml Q30M PRN IV Hypoglycemia 08/18/19 18:30 09/17/19 18:29 Dextrose (Dextrose 50%) 50 ml Q30M PRN IV Hypoglycemia 08/18/19 18:30 09/17/19 18:29 Diphenhydramine HCl (Benadryl) 25 mg Q6H PRN ORAL Itching/Pruritis 08/18/19 18:30 09/17/19 18:29 Heparin Sodium (Porcine) (Heparin 5000 units/ml) 5,000 units EVERY 12 HOURS SUBQ 08/18/19 21:00 09/17/19 20:59 08/19/19 08:46 Lorazepam (Ativan 2mg/ml 1ml) 0.5 mg ONCE IV 08/20/19 18:45 08/20/19 20:00 08/20/19 18:51 Lorazepam (Ativan 2mg/ml 1ml) 1 mg Q4H PRN IV agitation 08/18/19 18:30 08/25/19 18:29 08/19/19 09:56 Metoclopramide HCl (Reglan) 10 mg Q6H PRN IVP severe nausea 08/18/19 18:30 09/17/19 18:29 Morphine Sulfate (Morphine Sulfate) 2 mg Q4H PRN IVP Moderate Pain (Pain Scale 4-6) 08/19/19 18:30 08/25/19 18:29 Morphine Sulfate (Morphine Sulfate) 4 mg Q4H PRN IVP Severe Pain (Pain Scale 7-10) 08/19/19 17:45 08/26/19 17:44 08/20/19 17:11 Nitroglycerin (Ntg) 0.4 mg Q5M X 3 DOSES PRN SL Prn Chest Pain 08/18/19 18:30 09/17/19 18:29 Ondansetron HCl (Zofran) 4 mg Q6H PRN IVP Nausea & Vomiting 08/18/19 18:30 09/17/19 18:29 Pantoprazole (Protonix) 40 mg DAILY IV 08/19/19 09:00 09/18/19 08:59 08/20/19 08:59 Polyethylene Glycol (Miralax) 17 gm HSPRN PRN ORAL Constipation 08/18/19 18:30 09/17/19 18:29 Sodium 1,000 ml @ 75 mls/hr [id number] IV 08/19/19 19:00 09/18/19 18:59 08/20/19 09:15 Temazepam (Restoril) 15 mg HSPRN PRN ORAL Insomnia 08/18/19 18:30 08/25/19 18:29 Allergies: Coded Allergies: PENICILLINS (Verified Allergy, Unknown, 08/18/19) Subjective Awake, alert, responsive, complains of abdominal pain, no nausea vomiting. Objective Last Vital Signs Date Time Temp Pulse Resp B/P (MAP) Pulse Ox O2 Delivery O2 Flow Rate FiO2 08/20/19 17:41 98.4 08/20/19 16:00 79 19 167/73 (104) 100 08/20/19 13:25 Room Air 08/20/19 13:00 3 Laboratory Tests Test 08/20/19 05:23 White Blood Count 4.5 K/UL (4.8-10.8) L Red Blood Count 3.37 M/UL (4.20-5.40) L Hemoglobin 10.6 G/DL (12.0-16.0) L Hematocrit 31.9 % (37.0-47.0) L Mean Corpuscular Volume 95 FL (80-99) Mean Corpuscular Hemoglobin 31.5 PG (27.0-31.0) H Mean Corpuscular Hemoglobin Concent 33.2 G/DL (32.0-36.0) Red Cell Distribution Width 12.3 % (11.6-14.8) Platelet Count 263 K/UL (150-450) Mean Platelet Volume 6.5 FL (6.5-10.1) Neutrophils (%) (Auto) % (45.0-75.0) Lymphocytes (%) (Auto) % (20.0-45.0) Monocytes (%) (Auto) % (1.0-10.0) Eosinophils (%) (Auto) % (0.0-3.0) Basophils (%) (Auto) % (0.0-2.0) Prothrombin Time 10.7 SEC (9.30-11.50) Prothromb Time International Ratio 1.0 (0.9-1.1) Activated Partial Thromboplast Time 25 SEC (23-33) Sodium Level 143 MMOL/L (136-145) Potassium Level 3.5 MMOL/L (3.5-5.1) Chloride Level 108 MMOL/L (98-107) H Carbon Dioxide Level 25 MMOL/L (21-32) Anion Gap 10 mmol/L (5-15) Blood Urea Nitrogen 6 mg/dL (7-18) L Creatinine 1.0 MG/DL (0.55-1.30) Estimat Glomerular Filtration Rate > 60 mL/min (>60) Glucose Level 87 MG/DL (74-106) Calcium Level 8.9 MG/DL (8.5-10.1) Intake and Output 08/19/19 08/20/19 19:00 07:00 Intake Total 775 ml 600 ml Balance 775 ml 600 ml IV Total 525 ml 600 ml Other 250 ml # Voids 4 # Bowel Movements 4 Objective General: No acute distress, awake and alert HEENT: NCAT, sclera anicteric, PERRL, EOMI. Neck: Supple, no significant jugular venous distention, Lungs: fair inspiratory effort, clear to auscultation bilaterally, no Wheeze or Rales. Heart: Regular rate and rhythm, normal S1/S2, no murmur Abdomen: soft, Generalized tenderness, nondistended. Normoactive bowel sounds. / Rectal: Refused and deferred. Extremities: No Cyanosis , clubbing or edema. Neuro: A&O x 3, Able to move all extremities Skin: warm, no rashes or lesions Psych: anxious mood and affect Assessment/Plan Assessment/Plan ASSESSMENT: This is a 58-year-old female. 1. Epigastric pain. 2. Nausea and vomiting. TREATMENT: Epigastric pain/nausea/vomiting. A Gastroenterology consultation has been obtained with Dr. Gómez Jj. will advance diet as tolerated. Pain control DC planning home in AM EGD / Colonoscopy (08/20/2019) Operative Findings/Diagnosis: gastritis, hemorrhoids Joey Mireles MD Aug 20, 2019 19:39
--- NOTE | 2019-08-20 20:20 | NUR ---
HAND-OFF: Report given to ANDRAE Martinez.
--- NOTE | 2019-08-20 20:36 | NUR ---
NURSE NOTES: RECEIVED PT FROM ANDRAE RICARDO. PT IS AWAKE, AAO X4, ON ROOM AIR, C/O 8/10 PAIN IN THE LOWER ABDOMEN. IV ON RIGHT FA 22 G IS INTACT AND PATENT. BED IS LOCKED AND LOW, BED ALARMS ACTIVE, SIDE RAILS UP X2 AND CALL LIGHT IS WITHIN REACH. WILL CONTINUE TO MONITOR AND FOLLOW UP WITH PAIN MANAGEMENT.
[2019-08-21] VITALS: BP 120/68
[2019-08-21] MEDS: Morphine Sulfate 4mg/ml Inj (IV USE ONLY) IVP PRN ×3 (02:48→11:05)
[2019-08-21 04:00] VITALS: BP 137/71
[2019-08-21 06:28] LABS: BASOPHILS % (AUTO) 0.7 % (0.0-2.0); EOSINOPHILS % (AUTO) 0.9 % (0.0-3.0); HEMATOCRIT 33.3 % (37.0-47.0); HEMOGLOBIN 11.1 G/DL (12.0-16.0); LYMPHOCYTES % (AUTO) 18.1 % (20.0-45.0); MEAN CORPUSCULAR VOLUME 95 FL (80-99); NEUTROPHILS % (AUTO) 75.3 % (45.0-75.0); PLATELET COUNT 274 K/UL (150-450); RED BLOOD COUNT 3.51 M/UL (4.20-5.40); RED CELL DISTRIBUTION WIDTH 12.4 % (11.6-14.8); WHITE BLOOD COUNT 8.4 K/UL (4.8-10.8)
[2019-08-21 06:46] LABS: ANION GAP 9 mmol/L (5-15); BLOOD UREA NITROGEN 9 mg/dL (7-18); CALCIUM 8.9 MG/DL (8.5-10.1); CARBON DIOXIDE 25 MMOL/L (21-32); CHLORIDE 107 MMOL/L (98-107); POTASSIUM 3.6 MMOL/L (3.5-5.1); SODIUM 141 MMOL/L (136-145)
[2019-08-21 07:17] LABS: % IRON SATURATION 10 % (15-50); IRON 29 ug/dL (50-175); TOTAL IRON BINDING CAPACITY 295 ug/dL (250-450)
--- NOTE | 2019-08-21 07:20 | NUR ---
NURSE NOTES: HANDOFF RECEIVED FROM HUMBERTO, RN. PATIENT RECEIVED ALERT AND AWAKE IN BED. PATIENT HAS 2 IV SITES, BOTH ARE CLEAN DRY AND INTACT. ONE SALINE LOCKED THE OTHER RUNNING PRESCRIBED FLUIDS AT 75ML/HR. PATIENT IS ABLE TO MAKE NEEDS KNOWN. BED IS IN THE LOW AND LOCKED POSITION AND CALL LIGHT WITHIN REACH. WILL CONTINUE TO MONITOR.
--- NOTE | 2019-08-21 07:39 | NUR ---
HAND-OFF: Report given to ANDRAE RAO.
[2019-08-21 08:00] VITALS: BP 130/74
[2019-08-21] MEDS ORDERED: CARAFATE1 G1 ORAL (09:13)
[2019-08-21] MEDS ORDERED: PROTONIX40 MG ORAL (09:13)
[2019-08-21] MEDS: Pantoprazole Inj IV SCH (09:43)
[2019-08-21] MEDS: Heparin 5000 units/ml inj SUBQ SCH (09:44)
[2019-08-21] MEDS: 1/2NS w/KCl 20mEq 1000ml 1,000 ML IV SCH (11:00)
[2019-08-21 12:00] VITALS: BP 138/84
--- NOTE | 2019-08-21 12:05 | NUR ---
NURSE NOTES: DOCTOR PLACED ORDER FOR DISCHARGE. PATIENT SEEMED APPREHENSIVE FOR DISCHARGE BECAUSE SHE WAS STILL COMPLAINING OF STOMACH PAIN. PATIENT ASKED FOR DISCHARGE PAPERWORK AND TO REMOVE IV ACCESS DEVICES. I WAS DOING THE DISCHARGE PAPERWORK AND ASKED PATIENT IF I COULD CONTACT A FAMILY MEMBER OR FRIEND TO LET THEM KNOW OF HER DISCHARGE. PATIENT STATED THAT A FRIEND WOULD BE PICKING HER UP BUT DID NOT WANT ME TO CONTACT THEM STATING " I JUST WANT TO LEAVE, I DON'T WANT TO GET MAD AT ANYONE" PATIENT WAS UNCLEAR IF A FRIEND WOULD BE PICKING THEM UP OR IF SHE WOULD BE FINDING HER OWN WAY HOME. ALTHOUGH PREVIOUSLY MENTIONED A FRIEND WOULD BE HERE TO GET HER. OFFERED PATIENT A TAXI VOUCHER BUT SHE DECLINE. WALKED WITH PATIENT TO THE FIRST FLOOR WHERE PATIENT LEFT OUT OF THE FIRE DOOR EXIT. PATIENT LEFT STABLE AND ALERT, ID BRACELET AND IV ACCESS DEVICES REMOVED, NO SWELLING OR SIGNS OF HEMATOMA NOTED. DISCHARGE PAPERWORK SIGNED, TOLD PATIENT TO FOLLOW UP WITH PRIMARY DOCTOR. SHE STATED " IF THAT WAS THE DOCTOR I SAW THIS MORNING THEN I WONT BE FOLLOWING UP"
--- NOTE | 2019-08-21 16:48 | Pulmonology Progress Note ---
Assessment/Plan Problems: (1) Abdominal pain (2) Gastritis Assessment/Plan tolerated endoscopy very well tolerating diet d/w GI symptomatic treatment dc home prescription for Protonix and Carafate given Subjective ROS Limited/Unobtainable: No Constitutional: Reports: no symptoms HEENT: Repors: no symptoms Allergies: Coded Allergies: PENICILLINS (Verified Allergy, Unknown, 08/18/19) Objective Last 24 Hour Vital Signs Date Time Temp Pulse Resp B/P (MAP) Pulse Ox O2 Delivery O2 Flow Rate FiO2 08/21/19 12:00 98.2 74 18 138/84 (102) 99 08/21/19 09:00 Room Air 08/21/19 08:00 98.3 74 18 130/74 (92) 99 08/21/19 04:00 98.1 81 18 137/71 (93) 100 08/21/19 03:18 98.6 08/21/19 00:00 98.6 75 20 120/68 (85) 98 08/20/19 21:00 Room Air 08/20/19 20:00 98.7 76 18 160/83 (108) 98 Intake and Output 08/20/19 08/21/19 19:00 07:00 Intake Total 575 ml 525 ml Output Total 0 ml Balance 575 ml 525 ml IV Total 575 ml 525 ml Output Estimated Blood Loss 0 ml General Appearance: WD/WN HEENT: atraumatic Respiratory/Chest: lungs clear, normal breath sounds Breasts: no masses Cardiovascular: normal rate, no JVD Abdomen: soft, non tender, no mass Genitourinary: normal external genitalia Extremities: no clubbing 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, abnormal gait Lymphatic: no neck adenopathy Musculoskeletal: normal muscle bulk Laboratory Tests 08/21/19 05:15: White Blood Count 8.4#, Red Blood Count 3.51L, Hemoglobin 11.1L, Hematocrit 33.3L, Mean Corpuscular Volume 95, Mean Corpuscular Hemoglobin 31.7H, Mean Corpuscular Hemoglobin Concent 33.4, Red Cell Distribution Width 12.4, Platelet Count 274, Mean Platelet Volume 6.9, Neutrophils (%) (Auto) 75.3H, Lymphocytes ( %) (Auto) 18.1L, Monocytes (%) (Auto) 5.0, Eosinophils (%) (Auto) 0.9, Basophils (%) (Auto) 0.7, Sodium Level 141, Potassium Level 3.6, Chloride Level 107, Carbon Dioxide Level 25, Anion Gap 9, Blood Urea Nitrogen 9, Creatinine 1.0 , Estimat Glomerular Filtration Rate > 60, Glucose Level 89, Calcium Level 8.9, Iron Level 29L, Total Iron Binding Capacity 295, Percent Iron Saturation 10L, Unsaturated Iron Binding 266, Hepatitis A IgM Antibody [Pending], Hepatitis B Surface Antigen [Pending], Hepatitis B Core IgM Antibody [Pending], Hepatitis C Antibody [Pending] Slade Murphy MD Aug 21, 2019 16:48
--- NOTE | 2019-08-21 21:29 | General Progress Note ---
Assessment/Plan Status: unchanged Assessment/Plan: Assessment - Abd pain - nausea - gastritis - hemorrhoids Recommendations - reassurance - po as tolerated - d/c planning - outpatient f/u Subjective Allergies: Coded Allergies: PENICILLINS (Verified Allergy, Unknown, 08/18/19) Subjective some nausea tolerating PO for discharge today w/u reviewed Objective Last 24 Hour Vital Signs Date Time Temp Pulse Resp B/P (MAP) Pulse Ox O2 Delivery O2 Flow Rate FiO2 08/21/19 12:00 98.2 74 18 138/84 (102) 99 08/21/19 09:00 Room Air 08/21/19 08:00 98.3 74 18 130/74 (92) 99 08/21/19 04:00 98.1 81 18 137/71 (93) 100 08/21/19 03:18 98.6 08/21/19 00:00 98.6 75 20 120/68 (85) 98 Intake and Output 08/20/19 08/21/19 19:00 07:00 Intake Total 575 ml 525 ml Output Total 0 ml Balance 575 ml 525 ml IV Total 575 ml 525 ml Output Estimated Blood Loss 0 ml Laboratory Tests 08/21/19 05:15: White Blood Count 8.4#, Red Blood Count 3.51L, Hemoglobin 11.1L, Hematocrit 33.3L, Mean Corpuscular Volume 95, Mean Corpuscular Hemoglobin 31.7H, Mean Corpuscular Hemoglobin Concent 33.4, Red Cell Distribution Width 12.4, Platelet Count 274, Mean Platelet Volume 6.9, Neutrophils (%) (Auto) 75.3H, Lymphocytes ( %) (Auto) 18.1L, Monocytes (%) (Auto) 5.0, Eosinophils (%) (Auto) 0.9, Basophils (%) (Auto) 0.7, Sodium Level 141, Potassium Level 3.6, Chloride Level 107, Carbon Dioxide Level 25, Anion Gap 9, Blood Urea Nitrogen 9, Creatinine 1.0 , Estimat Glomerular Filtration Rate > 60, Glucose Level 89, Calcium Level 8.9, Iron Level 29L, Total Iron Binding Capacity 295, Percent Iron Saturation 10L, Unsaturated Iron Binding 266, Hepatitis A IgM Antibody [Pending], Hepatitis B Surface Antigen [Pending], Hepatitis B Core IgM Antibody [Pending], Hepatitis C Antibody [Pending] Height (Feet): 5 Height (Inches): 7.00 Weight (Pounds): 168 Objective WDWN AA woman NCAT supple CTA RRR abd soft no edema Thomas Hale MD Aug 21, 2019 21:29
--- NOTE | 2019-08-23 09:33 | Discharge Summary ---
Discharge Summary Discharge Summary _ DATE OF ADMISSION: 08/18/2019 DATE OF DISCHARGE: 08/21/2019 DISCHARGED BY: Dr. Mireles REASON FOR ADMISSION: 58 years old female with no significant past medical history , presented with epigastric pain and vomiting. Patient reported multiple episode of increased gas-like pain. She reported muscle spasm and moderate headache. She denied any bloody stools. She reported normal bowel movement earlier in the morning. Upon evaluation vital signs revealed elevated blood pressure 151/84 , otherwise stable. Laboratory work-up revealed no leukocytosis, stable hemoglobin and hematocrit. Potassium 3.1, otherwise stable electrolytes and renal parameters. Stable LFT and lipase. Urinalysis revealed no evidence of UTI. Stable coagulation profile. CT of the abdomen and pelvis demonstrated apparent thickening of portions of the wall of the stomach may possibly be related to underdistention versus gastritis. No evidence of small bowel obstruction. No free intraperitoneal air or fluid. Few scattered colonic diverticula without evidence of acute diverticulitis. Appendix was not definitively identified. No secondary signs to suggest acute appendicitis. Mild scoliosis and degenerative changes of the spine. No acute osseous abnormality. Status post hysterectomy. Patient reported history of neck surgery in the past. Subsequently CT of the cervical spine was done, which revealed no evidence of acute cervical spine fracture. Abdominal ultrasound revealed no acute findings. Patient subsequently admitted for further management and workup for abdominal pain, with associated nausea and vomiting. CONSULTANTS: GI specialist Dr. Jj hospitalist [facility]: Patient admitted to medical surgical floor. GI specialist followed. Patient started empirically on intravenous proton pump inhibitor/Protonix. Pain management was addressed. Patient subsequently undergone on 08/20 upper endoscopy with biopsy and colonoscopy . Patient noted to have few erosions in the antrum without any obvious ulceration or bleeding. Colonoscopy showed poor quality of preparation. Patient had some scattered diverticulosis in the left colon without evidence of diverticulitis. Internal hemorrhoids noted. Otherwise the rest of examination was within normal limits. GI specialist recommended follow-up with biopsy results and treat accordingly. At the time of this dictation biopsy results still pending. Patient started on diet and was advanced as tolerated. Symptomatic care provided. Pain was controlled. Antiemetic provided as needed. Patient was able to tolerate diet. Bowel regimen instituted. Blood pressure was controlled. Potassium was replaced and prior to discharge 3.6. Hemoglobin and hematocrit trended down with lowest hemoglobin 10.6 and hematocrit 31.9. Anemia work-up was consistent with anemia of chronic disease. Prior to discharge hemoglobin 11.1, hematocrit 33.3. Patient clinically stabilized and was ready for discharge home. FINAL DIAGNOSES: Epigastric pain -resolved Nausea and vomiting (likely due to gastritis) Status post EGD and colonoscopy 08/20 Gastritis Internal hemorrhoids Hypokalemia-resolved DISCHARGE MEDICATIONS: See Medication Reconciliation list. DISCHARGE INSTRUCTIONS: Patient was discharged home. Follow up with primary care provider in one week. I have been assigned to dictate discharge summary for this account. I was not involved in the patient's management. Corazon Salgado NP Aug 23, 2019 09:33
== END 2019-08-21 12:10 | disposition home or self-care (01) | DRG 392 ==
LOC: EMR 15:59 → 4E 16:09 → EDBEDREQ 17:08
PROC: 0DB78ZX Excision of Stomach, Pylorus, Via Natural or Artificial Opening Endoscopic, Diagnostic (ICD-10-PCS; principal; 2019-08-20 11:00)
PROC: 0DJD8ZZ Inspection of Lower Intestinal Tract, Via Natural or Artificial Opening Endoscopic (ICD-10-PCS; principal; 2019-08-20 11:00)
DX: K29.70 Gastritis, unspecified, without bleeding (principal); K59.00 Constipation, unspecified; K64.8 Other hemorrhoids; E87.6 Hypokalemia; Z88.0 Allergy status to penicillin; I10 Essential (primary) hypertension; D63.8 Anemia in other chronic diseases classified elsewhere
CPT/HCPCS: 36415; 72125; 74177; 76700; 80048; 80053; 81003; 82150; 83540; 83550; 83690; 85025; 85610; 85730; 86705; 86709; 86803; 87340; 93005; 96374; 96375; 99285; J2250; J2405; J8499